=== PATIENT | male | born 1995 | race Caucasian/White ===

== ENCOUNTER 2016-10-11 07:20 | Emergency (ER) | payer SELFPAY ==
[~2016-10-11] VITALS: Ht 175.3 cm; Wt 76.0 kg
[2016-10-11 07:24] VITALS: BP 160/88; PULSE 74; RESP 18; TEMP 97.8; O2SAT 95
[2016-10-11] MEDS ORDERED: VENTAER INH (07:39)
[2016-10-11] MEDS ORDERED: ALBU0.63 NEB (07:39)
[2016-10-11] MEDS ORDERED: methylPREDNISolone SOD SUCC 125 MG/2 ML VIAL IVP ONE (07:45)
--- NOTE | 2016-10-11 07:45 | PD ---
HPI Chief Complaint: Respiratory Symptoms Time Seen by Provider: 07:36 Travel History International Travel<30 days: No Contact w/Intl Traveler<30days: No Traveled to known affect area: No History of Present Illness HPI Patient is a 21-year-old male who presents to emergency room with complaints of asthma exacerbation. Patient reports that he has had a nonproductive cough for the past couple days, reports that this morning, he woke up and his felt short of breath and was wheezing. Patient reports that he can't seem to catch his breath at this time. Patient reports that he does have a history of asthma, he did try using his rescue inhaler without any relief of symptoms. Patient reports that he has had asthma all his life, reports that he has never been intubated for his asthma exacerbations. Reports that he was last admitted to the ICU when he was 10 years old for asthma exacerbation. Patient with no fevers or chills at this time. Patient with no recent travels, no other complaints. PFSH Past Medical History Asthma: Yes Diminished Hearing: No Respiratory: Yes (ASTHMA) Tetanus Vaccination: Unknown Past Surgical History Surgical History: No Previous Surgery Social History Alcohol Use: Yes (OCC) Tobacco Use: Yes (08/29 PPD) Substance Use: No Allergies-Medications (Allergen,Severity, Reaction): Coded Allergies: No Known Allergies (Unverified , 10/11/16) Reported Meds & Prescriptions Reported Meds & Active Scripts Active Azithromycin 500 Mg Tab 500 Mg PO DAILY Prednisone 20 Mg Tab 20 Mg PO BID 5 Days Proair Hfa 8.5 GM Inh (Albuterol Sulfate) 90 Mcg/Act Aer 2 Puff INH Q4-6H PRN 108 mcg/actuation Reported Albuterol Neb (Albuterol Sulfate) 0.63 Mg/3 Ml Neb 0.63 Mg NEB Q4HR NEB PRN Ventolin Hfa 18 GM Inh (Albuterol Sulfate) 90 Mcg/Act Aer 1 Puff INH Q4H PRN Review of Systems General / Constitutional: No: Fever, Chills Respiratory: Positive: Cough, Shortness of Breath, Wheezing Physical Exam Narrative GENERAL: No acute distress, nontoxic SKIN: Warm and dry. HEAD: Atraumatic. Normocephalic. ENT: No nasal bleeding or discharge. Mucous membranes pink and moist. NECK: Trachea midline. No JVD. CARDIOVASCULAR: Regular rate and rhythm. No murmur appreciated. RESPIRATORY: No accessory muscle use. Patient with scattered wheezing to upper and lower lungs GASTROINTESTINAL: Abdomen soft, non-tender, nondistended. Hepatic and splenic margins not palpable. MUSCULOSKELETAL: No obvious deformities. No clubbing. No cyanosis. No edema. NEUROLOGICAL: Awake and alert. Motor grossly within normal limits. Normal speech. PSYCHIATRIC: Patient anxious on exam Data Data Last Documented VS Vital Signs Date Time Temp Pulse Resp B/P Pulse Ox O2 Delivery O2 Flow Rate FiO2 10/11/16 07:34 16 95 Room Air 10/11/16 07:24 97.8 74 160/88 Orders Iv Access Insert/Monitor (10/11/16 07:40) Methylprednisolone So Succ Inj (Solumedr (10/11/16 07:45) Albuterol-Ipratropium Neb (Duoneb Neb) (10/11/16 07:45) Chest, Single Ap (10/11/16 07:40) Azithromycin (Zithromax) (10/11/16 09:15) MDM Medical Decision Making Medical Screen Exam Complete: Yes Emergency Medical Condition: Yes Interpretation(s) Vital Signs Date Time Temp Pulse Resp B/P Pulse Ox O2 Delivery O2 Flow Rate FiO2 10/11/16 07:34 16 95 Room Air 10/11/16 07:24 97.8 74 18 160/88 95 Differential Diagnosis Asthma exacerbation, pneumonia, pneumothorax Narrative Course Patient is a 21-year-old male who presents to emergency room with complaints of asthma exacerbation. Patient reports that he has been coughing for the past few days, reports that he has increased wheezing and shortness of breath today. Patient did try using his inhaler without any relief of symptoms. Vital Signs Date Time Temp Pulse Resp B/P Pulse Ox O2 Delivery O2 Flow Rate FiO2 10/11/16 07:34 16 95 Room Air 10/11/16 07:24 97.8 74 18 160/88 95 Vital signs stable at this time although patient hypertensive. Patient's respiratory rate is 16 and pulse is 74. Patient is afebrile. Plan to obtain x-ray of chest to evaluate for possible pneumonia versus pneumothorax IV steroids as well as neb treatments ordered for patient. Patient feeling much better at this time, decreased wheezing at this time, he will follow up with pcp and return to ER as needed. Diagnosis Primary Impression: Asthma exacerbation Patient Instructions: General Instructions Departure Forms: Tests/Procedures, Work Release Enter return to work date: Oct 13, 2016 Additional Instructions: Please return to ER as needed Take all your medications as prescribed Stop smoking cigarettes! Med/Other Pt SpecificInfo: Prescription(s) given Scripts Azithromycin 500 Mg Orx600 Mg PO DAILY #5 TAB Ref 0 Prov:Lubna Rob DO 10/11/16 Prednisone 20 Mg Tab20 Mg PO BID 5 Days Ref 0 Prov:Lubna Rob DO 10/11/16 Albuterol 8.5 GM Inh (Proair Hfa 8.5 GM Inh)90 Mcg/Act Aer2 Puff INH Q4-6H PRN ( SHORTNESS OF BREATH) #1 INHALER Ref 0 108 mcg/actuation Prov:Lubna Rob DO 10/11/16 Disposition: 01 DISCHARGE HOME Condition: Stable Lubna Rob DO Oct 11, 2016 07:45
[2016-10-11] MEDS: RESP: ALBUTEROL 2.5 MG/IPRATROPIUM 0.5 MG NEB (SCH) INH (07:55)
--- NOTE | 2016-10-11 07:58 | RADHPO ---
EXAM DATE/TIME: 10/11/2016 07:46 [facility] COMPARISON: No previous studies available for comparison. INDICATIONS : Cough for several days. Shortness of breath this morning. MEDICAL HISTORY : Asthma. SURGICAL HISTORY : None. ENCOUNTER: Initial ACUITY: 2 days PAIN SCORE: 0/10 LOCATION: Bilateral chest FINDINGS: A single view of the chest demonstrates bibasilar linear densities without evidence of mass, infiltra te or effusion. The cardiomediastinal contours are unremarkable. Osseous structures are intact. CONCLUSION: Bibasilar subsegmental atelectasis. Sharad Moon MD on October 11, 2016 at 7:56 Board Certified Radiologist. This report was verified electronically.
[2016-10-11] MEDS ORDERED: ALBUAER3 INH (09:04)
[2016-10-11] MEDS ORDERED: AZIT500T2 PO (09:04)
[2016-10-11] MEDS ORDERED: PRED20 PO (09:04)
[2016-10-11] MEDS ORDERED: AZITHROMYCIN 250 MG TAB PO ONE (09:15)
== END 2016-10-11 09:17 | disposition home or self-care (01) ==
LOC: PHED 07:20
DX: J45.901 Unspecified asthma with (acute) exacerbation (principal); R05 Cough; R06.02 Shortness of breath; F17.210 Nicotine dependence, cigarettes, uncomplicated
CPT/HCPCS: 71010; 94640; 94664; 96374; 99283; J2930